=== PATIENT | male | born 1995 | race Caucasian/White ===

== ENCOUNTER 2016-10-29 08:25 | Emergency (ER) | payer OTHER ==
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
--- NOTE | 2016-10-30 02:33 | ED MED RECONCILIATION SUMMARY ---
Patient: LUIS M DOLL Medication Reconciliation Report [facility] VisitID: [id number] [address] [place] [address] 21y, M Registration Date/Time: 10/29/2016 Weight: 79.3 kg Height/Length: 72 in. BMI: 23.7 ALLERGIES: None The patient's Home Medications are listed below: NONE. The source(s) of the original Home Medication information: Not obtained. The following Medications were given to the patient in the Emergency Department: bacitracin Topical 100 units, administered: 10/29/2016 10:15:00 AM The following Medications were prescribed to the patient: Acetaminophen (available over the counter): take according to label instructions. -- Kvng Montes MD
--- NOTE | 2016-10-30 02:33 | ED ORDER SUMMARY ---
..... Patient: LUIS M DOLL OrderSheet [facility] VisitID: [id number] [address] [place] [address] 21y, M Registration Date/Time: 10/29/2016 ORDER SHEET Weight: 79.3 kg (stated) Allergies: None GENERAL ORDERS: MEDICATION ORDERS: - (bacitracin topical to lip) (10:09 10/29/2016 Mariana Amezcua verbal order read back to Irineo SALINAS) (11:07 Mariana Amezcua) IV FLUIDS: ORDER SHEET NOTES: [Electronically signed by Nicole Hewitt R.N. (11:12 10/29/2016)] [Electronically signed by Kvng Montes MD (15:04 10/29/2016)] [Electronically locked/signed by Nicole Hewitt R.N. (11:12 10/29/2016)]
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
--- NOTE | 2016-10-30 02:33 | ED MAR SUMMARY ---
..... Medication Administration Record [facility] [address] [place] [address] Patient: LUIS M DOLL Visit ID: [id number] 21y, M Weight: 79.3 kg Height/Length: 72 in BMI: 23.7 ALLERGIES: None Given 10:15 10/29/2016 Nicole Hewitt R.N. Medication Administered: bacitracin *, Dose: 100 units * Topical. Medication Ordered: - (bacitracin topical to lip).
--- NOTE | 2016-10-30 02:33 | ED MAR SUMMARY ---
..... Medication Administration Record [facility] [address] [place] [address] Patient: LUIS M DOLL Visit ID: [id number] 21y, M Weight: 79.3 kg Height/Length: 72 in BMI: 23.7 ALLERGIES: None Given 10:15 10/29/2016 Nicole Hewitt R.N. Medication Administered: bacitracin *, Dose: 100 units * Topical. Medication Ordered: - (bacitracin topical to lip).
--- NOTE | 2016-10-30 02:33 | ED ORDER SUMMARY ---
..... Patient: LUIS M DOLL OrderSheet [facility] VisitID: [id number] [address] [place] [address] 21y, M Registration Date/Time: 10/29/2016 ORDER SHEET Weight: 79.3 kg (stated) Allergies: None GENERAL ORDERS: MEDICATION ORDERS: - (bacitracin topical to lip) (10:09 10/29/2016 Mariana Amezcua verbal order read back to Irineo SALINAS) (11:07 Mariana Amezcua) IV FLUIDS: ORDER SHEET NOTES: [Electronically signed by Nicole Hewitt R.N. (11:12 10/29/2016)] [Electronically signed by Kvng Montes MD (15:04 10/29/2016)] [Electronically locked/signed by Nicole Hewitt R.N. (11:12 10/29/2016)]
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
--- NOTE | 2016-10-30 02:33 | ED MED RECONCILIATION SUMMARY ---
Patient: LUIS M DOLL Medication Reconciliation Report [facility] VisitID: [id number] [address] [place] [address] 21y, M Registration Date/Time: 10/29/2016 Weight: 79.3 kg Height/Length: 72 in. BMI: 23.7 ALLERGIES: None The patient's Home Medications are listed below: NONE. The source(s) of the original Home Medication information: Not obtained. The following Medications were given to the patient in the Emergency Department: bacitracin Topical 100 units, administered: 10/29/2016 10:15:00 AM The following Medications were prescribed to the patient: Acetaminophen (available over the counter): take according to label instructions. -- Kvng Montes MD
== END 2016-10-29 10:22 | disposition home or self-care (01) ==
LOC: ED SRH 08:25
DX: S01.511A Laceration without foreign body of lip, initial encounter (principal); V54.5XXA Driver of pick-up truck or van injured in collision with heavy transport vehicle or bus in traffic accident, initial encounter; Y93.I9 Activity, other involving external motion; Y92.410 Unspecified street and highway as the place of occurrence of the external cause; Y99.9 Unspecified external cause status; F17.210 Nicotine dependence, cigarettes, uncomplicated; F41.9 Anxiety disorder, unspecified; F12.10 Cannabis abuse, uncomplicated